=== PATIENT | male | born 1950 | race Caucasian/White ===

== ENCOUNTER 2023-08-07 05:28 | Emergency (ER) | payer MEDICARE, SELFPAY ==
[2023-08-07] VITALS (61 sets, daily range): BP systolic 123–184; BP diastolic 71–130; PULSE 82–104; RESP 12–18; TEMP 36.4–38.8; O2SAT 81–97
--- NOTE | 2023-08-07 05:53 | CRLHL7_ITS ---
For Patients: As a result of the Century Cures Act, medical imaging exams and procedure reports are released immediately into your electronic medical record. You may view this report before your referring provider. If you have questions, please contact your health care provider. INDICATION: Altered mental status, rule out stroke. Fall this morning. COMPARISON: None. TECHNIQUE: CT of the head without IV contrast. Coronal and sagittal reconstructions. FINDINGS: There is a small area of decreased attenuation in the anterior inferior right frontal lobe with some asymmetric fullness of the sulci in the right frontal lobe (series 5, image 31 and series 11, image 34). Differential considerations include a developing infarct versus parenchymal contusion given history of fall. No intracranial hemorrhage or abnormal extra-axial fluid collections. No midline shift. Mild generalized cerebral and cerebellar volume loss with associated ex vacuo dilation of the lateral ventricles. Orbits and extraocular muscles are symmetric. Extensive paranasal sinus mucosal thickening with near complete opacification of the right frontal, right maxillary, and left sphenoid sinuses. Bony hyperostosis of the michael of the right maxillary sinus and left sphenoid sinus compatible with chronic sinusitis. The mastoid air cells are clear. No acute fracture identified. Minimal soft tissue swelling or scarring in the right posterior parietal scalp. IMPRESSION: 1. Small area of decreased attenuation in the anterior inferior right frontal lobe with some asymmetric fullness of the right frontal sulci. Differential considerations include a developing infarct or parenchymal contusion given history of fall. Consider further evaluation with MRI. No evidence of intracranial hemorrhage. 2. Minimal soft tissue swelling or scarring in the right posterior parietal scalp. 3. Extensive paranasal sinus disease. 4. Findings discussed with Radha Cartagena at 7:02 a.m. on 08/07/2023. Please note that all CT scans at this facility use dose modulation, iterative reconstruction, and/or weight-based dosing when appropriate to reduce radiation dose to as low as reasonably achievable. Dictated by Lupis Tucker MD @ 08/07/2023 7:07:47 AM (Electronically Signed)
--- NOTE | 2023-08-07 05:53 | CRLHL7_ITS ---
For Patients: As a result of the Century Cures Act, medical imaging exams and procedure reports are released immediately into your electronic medical record. You may view this report before your referring provider. If you have questions, please contact your health care provider. INDICATION: Acute stroke, altered mental status, weakness. TECHNIQUE: CTA head with contrast bolus tracking, 3D angiographic rendering using maximum intensity projection (MIP) and images permanently archived. FINDINGS: The examination is limited due to suboptimal timing of the contrast bolus. There is no obvious large vessel occlusion. No large aneurysm is identified. IMPRESSION: No obvious large vessel occlusion on this limited examination. Please note that all CT scans at this facility use dose modulation, iterative reconstruction, and/or weight-based dosing when appropriate to reduce radiation dose to as low as reasonably achievable. Dictated by Maximiliano Michael MD @ 08/07/2023 9:48:16 AM (Electronically Signed)
--- NOTE | 2023-08-07 05:53 | CRLHL7_ITS ---
For Patients: As a result of the Century Cures Act, medical imaging exams and procedure reports are released immediately into your electronic medical record. You may view this report before your referring provider. If you have questions, please contact your health care provider. INDICATION: Acute stroke, altered mental status, weakness. TECHNIQUE: CTA neck with contrast bolus tracking, 3D angiographic rendering using maximum intensity projection (MIP) and images permanently archived. FINDINGS: There is no significant carotid artery stenosis or dissection. There is no significant vertebral artery stenosis or dissection. The soft tissues of the neck are within normal limits. The cervical spine is in normal alignment. Degenerative changes are noted in the cervical spine. 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 Cervical arterial vasculature is otherwise patent without evidence of dissection. Findings discussed with Radha Cartagena at 6:41 a.m. on 08/07/2023, by Dr. Tucker. Please note that all CT scans at this facility use dose modulation, iterative reconstruction, and/or weight-based dosing when appropriate to reduce radiation dose to as low as reasonably achievable. Dictated by Maximiliano Michael MD @ 08/07/2023 9:51:35 AM (Electronically Signed)
--- NOTE | 2023-08-07 06:19 | PC.NURSE ---
tele health neuro in room assessment with service writer
--- NOTE | 2023-08-07 06:21 | ED_ITS ---
HPI - General Adult General Chief complaint: Altered Mental Status <Toya King MD - Last Filed: 08/07/23 08:22> Stated complaint: altered mental status <Toya King MD - Last Filed: 08/07/23 08:22> Time Seen by Provider: 08/07/23 06:21 <Toya King MD - Last Filed: 08/07/23 08:22> Source: patient, family and EMS <Toya King MD - Last Filed: 08/07/23 08:22> Mode of arrival: EMS <Toya King MD - Last Filed: 08/07/23 08:22> History of Present Illness HPI narrative: 73-year-old male, family well known to me that presents to the emergency department because of weakness. Patient last known normal at 11:00 p.m. last night, went to get up out of bed this morning at 4:00 a.m. and fell out of bed. He has been having increased urination lately, as was suspicious of a urinary infection. After trying to help him, she noticed that he was weak and she was unable to help him get up. She called their son who lives nearby and arrived within just a couple of minutes. Noticed weakness but could not pinpoint. Called EMS for assistance. He arrives approximately an hour and half after symptom onset. He is not able to verbalize or localize any concerns. Quick exam revealing marked left lower extremity weakness, slow speech, other sequelae of stroke. Initiated patient over to CT well I quickly talk to their family that just arrived. They confirm the last known well times as well as the 4:00 a.m. findings. No recent fevers, trauma. Fell out of bed but only a couple of feet onto the floor. Does not use any anticoagulants. No history of seizures. No intoxication. Does have a history of diabetes and hypertension but no history of strokes or significant cardiovascular disease. Medications have not recently changed. Past medical history per family hypertension, diabetes, hyperlipidemia. Home meds notable for insulin, glimepiride, sounds like a statin and blood pressure medicine of some kind, we are still getting these results. ROS notable for recent increased urination but otherwise the marked neurological changes noted early this morning. <Toya King MD - Last Filed: 08/07/23 08:22> Related Data Home medications: Home Medications Medication Instructions Recorded Confirmed ascorbic acid (vitamin C) 500 mg 500 mg PO DAILY 08/07/23 08/07/23 capsule,extended release (Vitamin C) aspirin 81 mg capsule 81 mg PO DAILY 08/07/23 08/07/23 clotrimazole 1 % topical cream 1 applic topical BID 08/07/23 08/07/23 (Antifungal (clotrimazole)) glimepiride 4 mg tablet 4 mg PO DAILY 08/07/23 08/07/23 insulin glargine subcut 08/07/23 losartan 100 mg tablet (Cozaar) 100 mg PO DAILY 08/07/23 08/07/23 magnesium oxide 500 mg capsule 500 mg PO DAILY 08/07/23 08/07/23 multivitamin (Daily Multi-Vitamin 1 tab PO DAILY 08/07/23 08/07/23 tablet) oxybutynin chloride 10 mg 10 mg PO DAILY 08/07/23 08/07/23 tablet,extended release 24 hr pioglitazone 30 mg tablet (Actos) 30 mg PO DAILY 08/07/23 08/07/23 pravastatin 40 mg tablet 40 mg PO DAILY 08/07/23 08/07/23 sitagliptin phosphate 50 1 tab PO BID 08/07/23 08/07/23 mg-metformin 1,000 mg tablet (Janumet) <Toya King MD - Last Filed: 08/07/23 08:22> Allergies/adverse reactions: Allergies Allergy/AdvReac Type Severity Reaction Status Date / Time niacin Allergy Unknown Verified 08/07/23 06:32 cefdinir [From Omnicef] AdvReac Mild Rash Verified 08/07/23 06:32 hydrocodone AdvReac Mild Rash Verified 08/07/23 06:32 codeine AdvReac Unknown Verified 08/07/23 06:32 <Toya King MD - Last Filed: 08/07/23 08:22> [facility] Medical History: Medical History (Updated 08/07/23 @ 07:01 by Toya King MD) Obese ?E66.9 - Obesity, unspecified (ICD-10) High cholesterol ?E78.00 - Pure hypercholesterolemia, unspecified (ICD-10) HTN (hypertension) ?I10 - Essential (primary) hypertension (ICD-10) Erectile dysfunction ?N52.9 - Male erectile dysfunction, unspecified (ICD-10) Sleep apnea ?G47.30 - Sleep apnea, unspecified (ICD-10) OAB (overactive bladder) ?N32.81 - Overactive bladder (ICD-10) Type 2 diabetes mellitus ?E11.9 - Type 2 diabetes mellitus without complications (ICD-10) Prostate CA ?C61 - Malignant neoplasm of prostate (ICD-10) <Toya King MD - Last Filed: 08/07/23 08:22> Surgical History: Surgical History (Updated 08/07/23 @ 06:35 by Cassy Ocampo RN) H/O foot surgery ?Z98.890 - Other specified postprocedural states (ICD-10) History of appendectomy ?Z90.49 - Acquired absence of other specified parts of digestive tract (ICD- 10) H/O shoulder surgery ?Z98.890 - Other specified postprocedural states (ICD-10) <Toya King MD - Last Filed: 08/07/23 08:22> Social History: Social History Non-prescribed substance use: denies use <Toya King MD - Last Filed: 08/07/23 08:22> Exam Const: Vital Signs, click to edit/add: Vital Signs - 24 hr 08/07/23 21:00 Pulse Rate 89 Pulse Oximetry 92 <Toya King MD - Last Filed: 08/07/23 08:22> Vital Signs, click to edit/add: Vital Signs - 24 hr 08/07/23 21:00 Pulse Rate 89 Pulse Oximetry 92 <Sohpia Hassan MD - Last Filed: 08/08/23 20:53> Vital Signs, click to edit/add: Vital Signs - 24 hr 08/07/23 21:00 Pulse Rate 89 Pulse Oximetry 92 <Sophia Bar MD - Last Filed: 08/07/23 21:24> Documenting provider has reviewed patient's vital signs: yes <Toya King MD - Last Filed: 08/07/23 08:22> Exam limitations: altered mental status <MD Malini Carver Last Filed: 08/07/23 08:22> General appearance: well kempt <MD Malini Carver Last Filed: 08/07/23 08:22> Other: Cooperative and friendly. Speech in response time is markedly slower than his typical. <Toya King MD - Last Filed: 08/07/23 08:22> HENMT: Common normals: normocephalic and head/scalp atraumatic <MD Malini Carver Last Filed: 08/07/23 08:22> Head and scalp: normocephalic and atraumatic <MD Malini Carver Last Filed: 08/07/23 08:22> Other: Mild left facial droop. Oropharynx looks symmetrical with midline tongue protrusion. <Toya King MD - Last Filed: 08/07/23 08:22> Eye: Other: Patient has some neglect with visual field on the left side. Gaze preference to the right. Can distract him towards normal extraocular movements with my finger but he quickly reverts back to the right side. No obvious nystagmus. <MD Malini Carver Last Filed: 08/07/23 08:22> Neck & C-Spine: Common normals: full ROM and no lymphadenopathy <MD Malini Carver Last Filed: 08/07/23 08:22> Resp: Common normals: normal respiratory effort, no use of accessory muscles and clear to auscultation bilaterally <MD Malini Carver Last Filed: 08/07/23 08:22> Auscultation: clear to auscultation bilaterally <MD Malini Carver Last Filed: 08/07/23 08:22> Cardio: Common normals: regular rate, regular rhythm, S1 normal heart sound, S2 normal heart sound and no murmurs <MD Malini Carver Last Filed: 08/07/23 08:22> Rate: regular rate <MD Malini Carver Last Filed: 08/07/23 08:22> Rhythm: regular rhythm <MD Malini Carver Last Filed: 08/07/23 08:22> Heart sounds: S1 normal and S2 normal <MD Malini Carver Last Filed: 08/07/23 08:22> GI: Common normals: Normal to inspection, nondistended, normoactive bowel sounds present, soft to palpation, non-tender, no hepatosplenomegaly and no masses <Toya King MD - Last Filed: 08/07/23 08:22> Palpation: soft and no hepatosplenomegaly <MD Malini Carver Last Filed: 08/07/23 08:22> Extremity: Other: Marked weakness to left lower leg otherwise no obvious effusions or signs of trauma to the upper or lower extremities. <Toya King MD - Last Filed: 08/07/23 08:22> Neuro: Other: Marked weakness to left leg, cannot initiate movement. Mild drift to left upper extremity. Right upper and lower extremities normal to strength. Sensation difficult to interpret due to his slow mentation and response time. Flattening of left nasolabial fold. Neglect of left side and left visual colmenares. Decreased awareness, incorrect of date which is surprising, as his birthday was just yesterday. Recognizes his family in the room. Does not seem to recognize me. No agitation. <Toya King MD - Last Filed: 08/07/23 08:22> Psych: Appearance: well kempt <MD Malini Carver Last Filed: 08/07/23 08:22> Speech: slow <MD Malini Carver Last Filed: 08/07/23 08:22> Insight: limited <MD Malini Carver Last Filed: 08/07/23 08:22> Judgement: limited <MD Malini Carver Last Filed: 08/07/23 08:22> Skin: Common normals: no rashes or lesions noted <MD Malini Carver Last Filed: 08/07/23 08:22> General skin exam: no rashes or lesions noted <Toya King MD - Last Filed: 08/07/23 08:22> Course Course ED Course: Signs of significant stroke. NIH scale above 10. Patient taken urgently to CT scan, no evidence of obvious bleed seen per my interpretation. Immediate transition to CT angio of head and neck while we initiated call to tele stroke. Dr. Cartagena is examining patient and determining plan of care via telehealth. Basic labs will be ordered. <Toya King MD - Last Filed: 08/07/23 08:22> Reevaluation(s) Time of Reevaluation #1: 06:57 <Toya King MD - Last Filed: 08/07/23 08:22> Reevaluation #1: Telehealth assessment has been performed. I have also spoken with Dr. Cartagena, the neurologist on-call. We both agree that on the CT angiogram, we do not see any obvious large vessel blockage that would benefit from urgent inte rvention. She is recommending an MRI today, isaak, additional workup. Sometimes we can facilitate that MRI on the weekend if the staff that her on also happened to be ct scan technologist certified but this weekend, there is no MR service available. Because of this, Neurology is recommending transfer for further workup. We discussed antiplatelets and she recommends aspirin 325 p.o. x1. Will continue to monitor neurologically and reassess interventions if there is any neurological decline. We were able to get the patient on the wait list for [facility], he is 1st on the wait list for a neurology transfer. Delay in transfer due to bed availability. <Toya King MD - Last Filed: 08/07/23 08:22> Time of Reevaluation #2: 08:17 <Toya King MD - Last Filed: 08/07/23 08:22> Reevaluation #2: No interval changes, handing over plan of care to incoming day shift partner. <Toya King MD - Last Filed: 08/07/23 08:22> Time of Reevaluation #3: 14:01 <Sophia Hassan MD - Last Filed: 08/08/23 20:53> Reevaluation #3: At this time, patient is awake, is complaining of a mild headache. His notes that he has been having these recently. Will order him some Tylenol. We had done a bit more workup this morning given his elevated white count and elevated C-reactive protein. He had normal portable chest x-ray, urinalysis showed some concentration/dehydration but no evidence of UTI at this point. Lactate was normal. Two blood cultures were drawn. Did end up doing chest abdomen pelvis noncontrast as he already had IV contrast for the CT A's. This did not show any definite infectious etiology. We are still awaiting transfer to [place] at this time. <Sophia Hassan MD - Last Filed: 08/08/23 20:53> Additional Reevaluation(s): 18:23pm spoke with hospitalist at [facility] Dr. Moffett. She will accept the patient there. There is about a 4 hour bed delay for transfer. <Sophia Hassan MD - Last Filed: 08/08/23 20:53> Vital Signs Vital signs: Initial Vital Signs Temperature 99 F 08/07/23 05:38 Temperature Source Temporal Artery Scan 08/07/23 05:38 Pulse Rate 100 08/07/23 05:38 Respiratory Rate 18 08/07/23 05:38 Blood Pressure 167/79 H 08/07/23 05:38 Blood Pressure Mean 108 H 08/07/23 05:38 Blood Pressure Position Supine 08/07/23 05:38 Pulse Oximetry 90 08/07/23 05:38 Oxygen Delivery Method Room Air 08/07/23 05:38 Vital Signs Temperature 99 F 08/07/23 05:38 Pulse Rate 100 08/07/23 05:38 Respiratory Rate 18 08/07/23 05:38 Blood Pressure 167/79 H 08/07/23 05:38 Pulse Oximetry 90 08/07/23 05:38 Oxygen Delivery Method Room Air 08/07/23 05:38 Temperature 101.8 F H 08/07/23 20:32 Pulse Rate 89 08/07/23 21:00 Respiratory Rate 14 08/07/23 20:01 Blood Pressure 151/80 H 08/07/23 20:01 Pulse Oximetry 92 08/07/23 21:00 Oxygen Delivery Method Room Air 08/07/23 06:31 <Toya King MD - Last Filed: 08/07/23 08:22> Initial Vital Signs Temperature 99 F 08/07/23 05:38 Temperature Source Temporal Artery Scan 08/07/23 05:38 Pulse Rate 100 08/07/23 05:38 Respiratory Rate 18 08/07/23 05:38 Blood Pressure 167/79 H 08/07/23 05:38 Blood Pressure Mean 108 H 08/07/23 05:38 Blood Pressure Position Supine 08/07/23 05:38 Pulse Oximetry 90 08/07/23 05:38 Oxygen Delivery Method Room Air 08/07/23 05:38 Vital Signs Temperature 99 F 08/07/23 05:38 Pulse Rate 100 08/07/23 05:38 Respiratory Rate 18 08/07/23 05:38 Blood Pressure 167/79 H 08/07/23 05:38 Pulse Oximetry 90 08/07/23 05:38 Oxygen Delivery Method Room Air 08/07/23 05:38 Temperature 101.8 F H 08/07/23 20:32 Pulse Rate 89 08/07/23 21:00 Respiratory Rate 14 08/07/23 20:01 Blood Pressure 151/80 H 08/07/23 20:01 Pulse Oximetry 92 08/07/23 21:00 Oxygen Delivery Method Room Air 08/07/23 06:31 <Sophia Hassan MD - Last Filed: 08/08/23 20:53> Initial Vital Signs Temperature 99 F 08/07/23 05:38 Temperature Source Temporal Artery Scan 08/07/23 05:38 Pulse Rate 100 08/07/23 05:38 Respiratory Rate 18 08/07/23 05:38 Blood Pressure 167/79 H 08/07/23 05:38 Blood Pressure Mean 108 H 08/07/23 05:38 Blood Pressure Position Supine 08/07/23 05:38 Pulse Oximetry 90 08/07/23 05:38 Oxygen Delivery Method Room Air 08/07/23 05:38 Vital Signs Temperature 99 F 08/07/23 05:38 Pulse Rate 100 08/07/23 05:38 Respiratory Rate 18 08/07/23 05:38 Blood Pressure 167/79 H 08/07/23 05:38 Pulse Oximetry 90 08/07/23 05:38 Oxygen Delivery Method Room Air 08/07/23 05:38 Temperature 101.8 F H 08/07/23 20:32 Pulse Rate 89 08/07/23 21:00 Respiratory Rate 14 08/07/23 20:01 Blood Pressure 151/80 H 08/07/23 20:01 Pulse Oximetry 92 08/07/23 21:00 Oxygen Delivery Method Room Air 08/07/23 06:31 <Sophia Bar MD - Last Filed: 08/07/23 21:24> Medical Decision Making MDM Narrative Medical decision making narrative: Differential diagnosis including stroke, seizure, delirium, sepsis, intoxication, among others. Stroke standing most likely. <Toya King MD - Last Filed: 08/07/23 08:22> Differential diagnosis including stroke, seizure, delirium, sepsis, intoxication, among others. Stroke standing most likely. Did develop a fever of 101.8 just prior to his transfer. Tylenol was given and repeat blood cultures were drawn. I did update the accepting hospitalist with this information and recommended an LP and echocardiogram which were not able to do prior to him leaving secondary to ambulance arriving and no echocardiogram capabilities. Patient was transferred in stable condition. <Sophia Bar MD - Last Filed: 08/07/23 21:24> Medical Records Medical records reviewed: Yes I reviewed the patient's medical records <Toya King MD - Last Filed: 08/07/23 08:22> Lab Data Lab results reviewed: Yes I reviewed the patient's lab results <Toya King MD - Last Filed: 08/07/23 08:22> Lab results narrative: Mild leukocytosis, mild hyponatremia which is likely reactive from his hyperglycemia. Otherwise, labs look pretty good. <Toya King MD - Last Filed: 08/07/23 08:22> Labs: Lab Results 08/07/23 08/07/23 08/07/23 Range/Units 06:13 06:47 08:01 WBC 17.46 H (4.50-11.00) K/uL RBC 4.54 (4.30-5.90) m/uL Hgb 14.0 (13.5-17.5) gm/dL Hct 41.5 (37.0-53.0) % MCV 91 (80-100) fL MCH 31 (26-34) pg MCHC 34 (32-36) gm/dL RDW Coeff of Fer 14.3 (11.5-15.5) % Plt Count 209 (140-440) K/uL Neut % (Auto) 90.4 H (42.0-72.0) % Lymph % (Auto) 2.6 L (20-44) % Saline % (Auto) 6.6 (0.0-11.0) % Eos % (Auto) 0.0 (0.0-7.0) % Baso % (Auto) 0.1 (0.0-3.0) % Neut # (Auto) 15.80 H (1.7-7.0) K/uL Lymph # (Auto) 0.50 L (0.90-2.90) K/uL Saline # (Auto) 1.20 H (0.00-0.90) K/UL Eos # (Auto) 0.00 (0.00-0.50) K/uL Baso # (Auto) 0.00 (0.00-0.30) K/uL Abs Immat Gran (auto) 0.10 (0.00-0.30) K/uL Imm/Tot Granulo (auto) 0.3 % Sodium 131 L (135-149) mmol/L Potassium 4.5 (3.6-5.1) mmol/L Chloride 96 (96-114) mmol/L Carbon Dioxide 23 (20-32) mmol/L Anion Gap 12 (7-15) mEq/L BUN 21 (7-30) mg/dL Creatinine 0.9 (0.5-1.5) mg/dL Estimated GFR 90 ml/min Glucose 274 H (60-115) mg/dL Lactate (0.5-1.9) mmol/L Calcium 9.3 (8.4-10.6) mg/dL C-Reactive Protein 22.5 H (0.5-1.0) mg/dL Urine Color (Yellow) Urine Appearance (Clear) Urine pH (5.0-8.5) Ur Specific Garfield (1.000-1.030) Urine Protein (Negative) Urine Glucose (UA) (Negative) Urine Ketones (Negative) Urine Blood (Negative) Urine Nitrite (Negative) Urine Bilirubin (Negative) Urine Urobilinogen (0.2-1.0) Ur Leukocyte Esterase (Negative) Urine RBC (0-2) Urine WBC (0-5) Ur Squamous Epith Cells (None-Few) Urine Bacteria (None) SARS-CoV-2 (PCR) Negative SARS-CoV-2 (Negative) Influenza Type A (PCR) Negative PCR FLU A (Negative) Influenza Type B (PCR) Negative PCR FLU B (Negative) RSV (PCR) Negative PCR RSV (Negative) POC Troponin I 0.00 L (0.01-0.04) ng/ml 08/07/23 08/07/23 Range/Units 09:45 10:45 WBC (4.50-11.00) K/uL RBC (4.30-5.90) m/uL Hgb (13.5-17.5) gm/dL Hct (37.0-53.0) % MCV (80-100) fL MCH (26-34) pg MCHC (32-36) gm/dL RDW Coeff of Fer (11.5-15.5) % Plt Count (140-440) K/uL Neut % (Auto) (42.0-72.0) % Lymph % (Auto) (20-44) % Saline % (Auto) (0.0-11.0) % Eos % (Auto) (0.0-7.0) % Baso % (Auto) (0.0-3.0) % Neut # (Auto) (1.7-7.0) K/uL Lymph # (Auto) (0.90-2.90) K/uL Saline # (Auto) (0.00-0.90) K/UL Eos # (Auto) (0.00-0.50) K/uL Baso # (Auto) (0.00-0.30) K/uL Abs Immat Gran (auto) (0.00-0.30) K/uL Imm/Tot Granulo (auto) % Sodium (135-149) mmol/L Potassium (3.6-5.1) mmol/L Chloride (96-114) mmol/L Carbon Dioxide (20-32) mmol/L Anion Gap (7-15) mEq/L BUN (7-30) mg/dL Creatinine (0.5-1.5) mg/dL Estimated GFR ml/min Glucose (60-115) mg/dL Lactate 1.9 (0.5-1.9) mmol/L Calcium (8.4-10.6) mg/dL C-Reactive Protein (0.5-1.0) mg/dL Urine Color Yellow (Yellow) Urine Appearance Clear (Clear) Urine pH 5.5 (5.0-8.5) Ur Specific Garfield 1.020 (1.000-1.030) Urine Protein 2+ A (Negative) Urine Glucose (UA) 2+ A (Negative) Urine Ketones 3+ A (Negative) Urine Blood 2+ A (Negative) Urine Nitrite Negative (Negative) Urine Bilirubin Negative (Negative) Urine Urobilinogen 0.2 (0.2-1.0) Ur Leukocyte Esterase Negative (Negative) Urine RBC 2-5 A (0-2) Urine WBC 0-2 (0-5) Ur Squamous Epith Cells None (None-Few) Urine Bacteria Few A (None) SARS-CoV-2 (PCR) (Negative) Influenza Type A (PCR) (Negative) Influenza Type B (PCR) (Negative) RSV (PCR) (Negative) POC Troponin I (0.01-0.04) ng/ml <Toya King MD - Last Filed: 08/07/23 08:22> Lab Results 08/07/23 08/07/23 08/07/23 Range/Units 06:13 06:47 08:01 WBC 17.46 H (4.50-11.00) K/uL RBC 4.54 (4.30-5.90) m/uL Hgb 14.0 (13.5-17.5) gm/dL Hct 41.5 (37.0-53.0) % MCV 91 (80-100) fL MCH 31 (26-34) pg MCHC 34 (32-36) gm/dL RDW Coeff of Fer 14.3 (11.5-15.5) % Plt Count 209 (140-440) K/uL Neut % (Auto) 90.4 H (42.0-72.0) % Lymph % (Auto) 2.6 L (20-44) % Saline % (Auto) 6.6 (0.0-11.0) % Eos % (Auto) 0.0 (0.0-7.0) % Baso % (Auto) 0.1 (0.0-3.0) % Neut # (Auto) 15.80 H (1.7-7.0) K/uL Lymph # (Auto) 0.50 L (0.90-2.90) K/uL Saline # (Auto) 1.20 H (0.00-0.90) K/UL Eos # (Auto) 0.00 (0.00-0.50) K/uL Baso # (Auto) 0.00 (0.00-0.30) K/uL Abs Immat Gran (auto) 0.10 (0.00-0.30) K/uL Imm/Tot Granulo (auto) 0.3 % Sodium 131 L (135-149) mmol/L Potassium 4.5 (3.6-5.1) mmol/L Chloride 96 (96-114) mmol/L Carbon Dioxide 23 (20-32) mmol/L Anion Gap 12 (7-15) mEq/L BUN 21 (7-30) mg/dL Creatinine 0.9 (0.5-1.5) mg/dL Estimated GFR 90 ml/min Glucose 274 H (60-115) mg/dL Lactate (0.5-1.9) mmol/L Calcium 9.3 (8.4-10.6) mg/dL C-Reactive Protein 22.5 H (0.5-1.0) mg/dL Urine Color (Yellow) Urine Appearance (Clear) Urine pH (5.0-8.5) Ur Specific Garfield (1.000-1.030) Urine Protein (Negative) Urine Glucose (UA) (Negative) Urine Ketones (Negative) Urine Blood (Negative) Urine Nitrite (Negative) Urine Bilirubin (Negative) Urine Urobilinogen (0.2-1.0) Ur Leukocyte Esterase (Negative) Urine RBC (0-2) Urine WBC (0-5) Ur Squamous Epith Cells (None-Few) Urine Bacteria (None) SARS-CoV-2 (PCR) Negative SARS-CoV-2 (Negative) Influenza Type A (PCR) Negative PCR FLU A (Negative) Influenza Type B (PCR) Negative PCR FLU B (Negative) RSV (PCR) Negative PCR RSV (Negative) POC Troponin I 0.00 L (0.01-0.04) ng/ml 08/07/23 08/07/23 Range/Units 09:45 10:45 WBC (4.50-11.00) K/uL RBC (4.30-5.90) m/uL Hgb (13.5-17.5) gm/dL Hct (37.0-53.0) % MCV (80-100) fL MCH (26-34) pg MCHC (32-36) gm/dL RDW Coeff of Fer (11.5-15.5) % Plt Count (140-440) K/uL Neut % (Auto) (42.0-72.0) % Lymph % (Auto) (20-44) % Saline % (Auto) (0.0-11.0) % Eos % (Auto) (0.0-7.0) % Baso % (Auto) (0.0-3.0) % Neut # (Auto) (1.7-7.0) K/uL Lymph # (Auto) (0.90-2.90) K/uL Saline # (Auto) (0.00-0.90) K/UL Eos # (Auto) (0.00-0.50) K/uL Baso # (Auto) (0.00-0.30) K/uL Abs Immat Gran (auto) (0.00-0.30) K/uL Imm/Tot Granulo (auto) % Sodium (135-149) mmol/L Potassium (3.6-5.1) mmol/L Chloride (96-114) mmol/L Carbon Dioxide (20-32) mmol/L Anion Gap (7-15) mEq/L BUN (7-30) mg/dL Creatinine (0.5-1.5) mg/dL Estimated GFR ml/min Glucose (60-115) mg/dL Lactate 1.9 (0.5-1.9) mmol/L Calcium (8.4-10.6) mg/dL C-Reactive Protein (0.5-1.0) mg/dL Urine Color Yellow (Yellow) Urine Appearance Clear (Clear) Urine pH 5.5 (5.0-8.5) Ur Specific [place] 1.020 (1.000-1.030) Urine Protein 2+ A (Negative) Urine Glucose (UA) 2+ A (Negative) Urine Ketones 3+ A (Negative) Urine Blood 2+ A (Negative) Urine Nitrite Negative (Negative) Urine Bilirubin Negative (Negative) Urine Urobilinogen 0.2 (0.2-1.0) Ur Leukocyte Esterase Negative (Negative) Urine RBC 2-5 A (0-2) Urine WBC 0-2 (0-5) Ur Squamous Epith Cells None (None-Few) Urine Bacteria Few A (None) SARS-CoV-2 (PCR) (Negative) Influenza Type A (PCR) (Negative) Influenza Type B (PCR) (Negative) RSV (PCR) (Negative) POC Troponin I (0.01-0.04) ng/ml <Sophia Hassan MD - Last Filed: 08/08/23 20:53> Lab Results 08/07/23 08/07/23 08/07/23 Range/Units 06:13 06:47 08:01 WBC 17.46 H (4.50-11.00) K/uL RBC 4.54 (4.30-5.90) m/uL Hgb 14.0 (13.5-17.5) gm/dL Hct 41.5 (37.0-53.0) % MCV 91 (80-100) fL MCH 31 (26-34) pg MCHC 34 (32-36) gm/dL RDW Coeff of Fer 14.3 (11.5-15.5) % Plt Count 209 (140-440) K/uL Neut % (Auto) 90.4 H (42.0-72.0) % Lymph % (Auto) 2.6 L (20-44) % Saline % (Auto) 6.6 (0.0-11.0) % Eos % (Auto) 0.0 (0.0-7.0) % Baso % (Auto) 0.1 (0.0-3.0) % Neut # (Auto) 15.80 H (1.7-7.0) K/uL Lymph # (Auto) 0.50 L (0.90-2.90) K/uL Saline # (Auto) 1.20 H (0.00-0.90) K/UL Eos # (Auto) 0.00 (0.00-0.50) K/uL Baso # (Auto) 0.00 (0.00-0.30) K/uL Abs Immat Gran (auto) 0.10 (0.00-0.30) K/uL Imm/Tot Granulo (auto) 0.3 % Sodium 131 L (135-149) mmol/L Potassium 4.5 (3.6-5.1) mmol/L Chloride 96 (96-114) mmol/L Carbon Dioxide 23 (20-32) mmol/L Anion Gap 12 (7-15) mEq/L BUN 21 (7-30) mg/dL Creatinine 0.9 (0.5-1.5) mg/dL Estimated GFR 90 ml/min Glucose 274 H (60-115) mg/dL Lactate (0.5-1.9) mmol/L Calcium 9.3 (8.4-10.6) mg/dL C-Reactive Protein 22.5 H (0.5-1.0) mg/dL Urine Color (Yellow) Urine Appearance (Clear) Urine pH (5.0-8.5) Ur Specific [place]field (1.000-1.030) Urine Protein (Negative) Urine Glucose (UA) (Negative) Urine Ketones (Negative) Urine Blood (Negative) Urine Nitrite (Negative) Urine Bilirubin (Negative) Urine Urobilinogen (0.2-1.0) Ur Leukocyte Esterase (Negative) Urine RBC (0-2) Urine WBC (0-5) Ur Squamous Epith Cells (None-Few) Urine Bacteria (None) SARS-CoV-2 (PCR) Negative SARS-CoV-2 (Negative) Influenza Type A (PCR) Negative PCR FLU A (Negative) Influenza Type B (PCR) Negative PCR FLU B (Negative) RSV (PCR) Negative PCR RSV (Negative) POC Troponin I 0.00 L (0.01-0.04) ng/ml 08/07/23 08/07/23 Range/Units 09:45 10:45 WBC (4.50-11.00) K/uL RBC (4.30-5.90) m/uL Hgb (13.5-17.5) gm/dL Hct (37.0-53.0) % MCV (80-100) fL MCH (26-34) pg MCHC (32-36) gm/dL RDW Coeff of Fer (11.5-15.5) % Plt Count (140-440) K/uL Neut % (Auto) (42.0-72.0) % Lymph % (Auto) (20-44) % Saline % (Auto) (0.0-11.0) % Eos % (Auto) (0.0-7.0) % Baso % (Auto) (0.0-3.0) % Neut # (Auto) (1.7-7.0) K/uL Lymph # (Auto) (0.90-2.90) K/uL Saline # (Auto) (0.00-0.90) K/UL Eos # (Auto) (0.00-0.50) K/uL Baso # (Auto) (0.00-0.30) K/uL Abs Immat Gran (auto) (0.00-0.30) K/uL Imm/Tot Granulo (auto) % Sodium (135-149) mmol/L Potassium (3.6-5.1) mmol/L Chloride (96-114) mmol/L Carbon Dioxide (20-32) mmol/L Anion Gap (7-15) mEq/L BUN (7-30) mg/dL Creatinine (0.5-1.5) mg/dL Estimated GFR ml/min Glucose (60-115) mg/dL Lactate 1.9 (0.5-1.9) mmol/L Calcium (8.4-10.6) mg/dL C-Reactive Protein (0.5-1.0) mg/dL Urine Color Yellow (Yellow) Urine Appearance Clear (Clear) Urine pH 5.5 (5.0-8.5) Ur Specific [place] 1.020 (1.000-1.030) Urine Protein 2+ A (Negative) Urine Glucose (UA) 2+ A (Negative) Urine Ketones 3+ A (Negative) Urine Blood 2+ A (Negative) Urine Nitrite Negative (Negative) Urine Bilirubin Negative (Negative) Urine Urobilinogen 0.2 (0.2-1.0) Ur Leukocyte Esterase Negative (Negative) Urine RBC 2-5 A (0-2) Urine WBC 0-2 (0-5) Ur Squamous Epith Cells None (None-Few) Urine Bacteria Few A (None) SARS-CoV-2 (PCR) (Negative) Influenza Type A (PCR) (Negative) Influenza Type B (PCR) (Negative) RSV (PCR) (Negative) POC Troponin I (0.01-0.04) ng/ml <Sophia Bar MD - Last Filed: 08/07/23 21:24> Imaging Data CT scan - head: Attestation: I have reviewed the pertinent imaging results. <Toya King MD - Last Filed: 08/07/23 08:22> My impression: No obvious bleed. No mass. <Toya King MD - Last Filed: 08/07/23 08:22> CT angio head and neck: Attestation: I have reviewed the pertinent imaging results. <Toya King MD - Last Filed: 08/07/23 08:22> My impression: No obvious large vessel blockage, but interpretation of these is out of my skill set <Toya King MD - Last Filed: 08/07/23 08:22> Radiologist's impression: 1. Exam limited by suboptimal arterial phase of contrast. 2. The A1 segment of the right SABI is not identified and may be occluded or congenitally diminutive/absent. The right A2 segment is patent via the anterior communicating artery. No other intracranial proximal large vessel occlusion identified. 3. There is severe focal narrowing of the cervical left vertebral artery at the level of C3 by facet arthropathy. Cervical arterial vasculature is otherwise patent without evidence of dissection. 4. Findings discussed with aRdha Cartagena at 6:41 a.m. on 08/07/2023. <Toya King MD - Last Filed: 08/07/23 08:22> Chest x-ray: Attestation: I have reviewed the pertinent imaging results. <Sophia Schmidt MD - Last Filed: 08/08/23 20:53> Radiologist's impression: Patient: MIO ALMAZAN Facility:?[facility] Patient ID:?[id number] Site Patient ID:?[id number]. Site :?[id number] Study:?XRay Chest Portable-08/07/2023 8:16:17 AM Ordering Physician:Serafin Cortes Final Report: INDICATION: AMS INDICATION: Altered mental status. TECHNIQUE: Chest 1 view. COMPARISON: None FINDINGS: Cardiovascular and mediastinum: Heart size and vasculature are normal in caliber and appearance. Mediastinum is within normal limits. Lungs and pleural space: Lungs are clear. No sign of infiltrate or mass. No sign of pleural effusion. No pneumothorax. Bones and soft tissues: athletic monitor leads overlie the patient. IMPRESSION: There is no acute airspace disease. Dictated by Jamal Tan MD @ 08/07/2023 9:27:59 AM Dictated by: Jamal Tan MD @ 08/07/2023 09:28:14 (Electronic Signature) <Sophia Hassan MD - Last Filed: 08/08/23 20:53> CT Chest/Ab/Pelvis: Attestation: I have reviewed the pertinent imaging results. <Sophia Schmidt MD - Last Filed: 08/08/23 20:53> Radiologist's impression: Patient: MIO ALMAZAN Facility:?[facility] Patient ID:?[id number] Site Patient ID:?[id number]. Site :?[id number] Study:?CT Chest/Abd/Pelvis W/O-08/07/2023 10:31:37 AM Ordering Physician:Serafin Cortes Final Report: INDICATION: ams, elevated wbc/crp, no known infection source Indication: Altered mental status. Elevated white blood cell count/CRP. Technique: CT of the chest, abdomen, and pelvis. No intravenous contrast. Coronal/sagittal reconstruction images. Comparison: None. Findings: Chest: There is no pleural or pericardial effusion. No thoracic lymphadenopathy. The main pulmonary artery and thoracic aorta are normal in caliber. No mass at the thoracic inlet. The lung windows demonstrate bibasilar dependent atelectasis. There is no peripheral reticulation, honeycombing, or traction bronchiectasis. No mosaic attenuation. No endobronchial nodule or mass. There are a few tiny pulmonary nodules in the lungs. For example, on series 2, image 45, 5 millimeter pulmonary nodule in the right middle lobe. Abdomen/pelvis: There is diffuse hepatic steatosis. Non cirrhotic liver morphology. No perihepatic ascites. Spleen size is normal. No adrenal mass. Benign right renal cyst. There is no solid renal mass. There is perinephric fat stranding. There is no pancreatic mass or pancreatic duct dilation. No glandular atrophy. There is no gastric or duodenal wall thickening. Prostate appears absent. Perivesical fat/extraperitoneal space of Retzius are normal. Contrast within the intrarenal collecting systems and urinary bladder. No bladder mass. Colonic diverticulosis. No findings for diverticulitis. There is no mural thickening or perienteric edema. No transition point. Normal ileocecal valve. Small umbilical hernia containing fat. No enteric compromise. No inguinal or pelvic sidewall lymphadenopathy. Degenerative calcific plaque in a normal caliber abdominal aorta. No gastric or duodenal wall thickening. The bone windows demonstrate no suspicious bone lesions. Bridging osteophytes at the right SI joint. Degenerative disc disease throughout the thoracic spine. A lignment is preserved on sagittal reconstruction images. Impression: 1. No findings are seen to explain leukocytosis. 2. Umbilical hernia containing fat. No enteric compromise. 3. Diverticulosis of the colon. No associated inflammatory changes. 4. No thoracic, abdominal, or pelvic lymphadenopathy by size criteria. 5. Sub centimeter pulmonary nodules. These are of low suspicion. Follow-up is suggested per Fleischner society guidelines. FLEISCHNER SOCIETY GUIDELINES - SOLID NODULES: SINGLE LOW RISK - nodule less than 6 mm: No routine follow-up. - nodule 6-8 mm: CT at 6-12 months, then consider CT at 18-24 months. - nodule greater than 8 mm: Consider CT at 3 months, PET/CT or tissue sampling. SINGLE HIGH RISK - nodule less than 6 mm: Optional CT at 12 months. - nodule 6-8 mm: CT at 6-12 months, then CT at 18-24 months. - nodule greater than 8 mm: Consider CT at 3 months, PET/CT or tissue sampling. MULTIPLE LOW RISK - nodule less than 6 mm: No routine follow-up. - nodule 6-8 mm: CT at 3-6 months, then consider CT at 18-24 months. - nodule greater than 8 mm: CT at 3-6 months, then consider CT at 18-24 months. MULTIPLE HIGH RISK - nodule less than 6 mm: Optional CT at 12 months. - nodule 6-8 mm: CT at 3-6 months, then at 18-24 months. - nodule greater than 8 mm: CT at 3-6 months, then at 18-24 months. Dictated by Jamal Tan MD @ 08/07/2023 11:13:01 AM Please note that all CT scans at this facility use dose modulation, iterative reconstruction, and/or weight-based dosing when appropriate to reduce radiation dose to as low as reasonably achievable. Dictated by: Jamal Tan MD @ 08/07/2023 11:13:22 (Electronic Signature) <Sophia Hassan MD - Last Filed: 08/08/23 20:53> ECG Data Attestation: I personally reviewed and interpreted this ECG as follows: <Toya King MD - Last Filed: 08/07/23 08:22> Prior ECG tracings: not available for review <Toya King MD - Last Filed: 08/07/23 08:22> Interpretation: Normal sinus rhythm, rate 94. Normal axis. Normal R-wave progression. No significant ST or T-wave abnormalities. <Toya King MD - Last Filed: 08/07/23 08:22> Critical Care Time Critical Care Time Critical Care Time: Yes Attestation: The patient required my highest level preparedness to intervene emergently and I personally spent this critical care time directly and personally managing the patient. This critical care time included: Obtaining a history; Examining the patient; Pulse oximetry; Ordering and reviewing of studies; Arranging urgent treatment with development of a management plan; Evaluation of patients response to treatment; Frequent reassessment discussions with other providers. This critical care time was performed to assess and manage the high probability of imminent life-threatening deterioration that could result in multiorgan failure. It was exclusive of separate billable procedures and treating other patients and teaching time. <Toya King MD - Last Filed: 08/07/23 08:22> Total Critical Care Time in Minutes: 45 <Toya King MD - Last Filed: 08/07/23 08:22> Discharge Plan Discharge Clinical Impression: Stroke <Toya King MD - Last Filed: 08/07/23 08:22> Patient Disposition: [facility] <Toya King MD - Last Filed: 08/07/23 08:22> Discharge Location: [facility] <Toya King MD - Last Filed: 08/07/23 08:22> Condition: Guarded <Toya King MD - Last Filed: 08/07/23 08:22> Prescriptions: No Action multivitamin [Daily Multi-Vitamin] Tablet 1 tab PO DAILY losartan [Cozaar] 100 mg tablet 100 mg PO DAILY magnesium oxide 500 mg capsule 500 mg PO DAILY oxybutynin chloride 10 mg tablet extended release 24hr 10 mg PO DAILY pravastatin 40 mg tablet 40 mg PO DAILY Janumet 50-1,000 mg tablet 1 tab PO BID pioglitazone [Actos] 30 mg tablet 30 mg PO DAILY ascorbic acid (vitamin C) [Vitamin C] 500 mg capsule, extended release 500 mg PO DAILY aspirin 81 mg capsule 81 mg PO DAILY insulin glargine [Basaglar KwikPen U-100 Insulin] subcut clotrimazole [Antifungal (clotrimazole)] 1 % cream 1 applic topical BID glimepiride 4 mg tablet 4 mg PO DAILY <Toya King MD - Last Filed: 08/07/23 08:22> Stand Alone Forms: [facility] Info Instructions <Toya King MD - Last Filed: 08/07/23 08:22>
--- NOTE | 2023-08-07 07:03 | ED.NURSE ---
Stroke Code Times 0554 stroke code called - Ct notified [address] BGL in triage 264 Tele neuro paged @ 0602 Dr. Cartagena speaking w/ @ 0607 teleneuro exam @ 0615 On waitlist @ [facility] (needs MRI) @ 0648
[2023-08-07 07:04] LABS: Basophils Percent Auto 0.1 % (0.0-3.0); Hematocrit 41.5 % (37.0-53.0); Immature Granulocytes Pct Auto 0.3 %; Lymphocytes Percent Auto 2.6 % (20-44); Mean Corpuscular HGB Conc 34 gm/dL (32-36); Mean Corpuscular Hemoglobin 31 pg (26-34); Mean Corpuscular Volume 91 fL (80-100); Monocytes Percent Auto 6.6 % (0.0-11.0); Neutrophils Percent Auto 90.4 % (42.0-72.0); Platelet Count* 209 K/uL (140-440); RDW Coefficient of Variation % 14.3 % (11.5-15.5); Red Blood Count 4.54 m/uL (4.30-5.90); White Blood Count* 17.46 K/uL (4.50-11.00)
[2023-08-07] MEDS: ASPIRIN 81 MG TAB.CHEW 324 MG PO (07:09)
[2023-08-07 07:12] LABS: Slide Review Reflex No
[2023-08-07 07:14] LABS: Chloride* 96 mmol/L (96-114); Potassium* 4.5 mmol/L (3.6-5.1); Sodium* 131 mmol/L (135-149)
[2023-08-07 07:17] LABS: Anion Gap 12 mEq/L (7-15); Blood Urea Nitrogen* 21 mg/dL (7-30); Carbon Dioxide* 23 mmol/L (20-32); Creatinine* 0.9 mg/dL (0.5-1.5); Estimated Glomerular Filt Rate 90 ml/min
[2023-08-07 07:18] LABS: Calcium* 9.3 mg/dL (8.4-10.6); Glucose* 274 mg/dL (60-115)
[2023-08-07 07:32] LABS: C Reactive Protein* 22.5 mg/dL (0.5-1.0)
--- NOTE | 2023-08-07 08:02 | CRLHL7_ITS ---
For Patients: As a result of the Cures Act, medical imaging exams and procedure reports are released immediately into your electronic medical record. You may view this report before your referring provider. If you have questions, please contact your health care provider. INDICATION: AMS INDICATION: Altered mental status. TECHNIQUE: Chest 1 view. COMPARISON: None FINDINGS: Cardiovascular and mediastinum: Heart size and vasculature are normal in caliber and appearance. Mediastinum is within normal limits. Lungs and pleural space: Lungs are clear. No sign of infiltrate or mass. No sign of pleural effusion. No pneumothorax. Bones and soft tissues: monitoring tech leads overlie the patient. IMPRESSION: There is no acute airspace disease. Dictated by Jamal Tan MD @ 08/07/2023 9:27:59 AM Dictated by: Jamal Tan MD @ 08/07/2023 09:28:14 (Electronically Signed)
--- NOTE | 2023-08-07 08:36 | ED.NURSE ---
Pt asleep. Spouse at bedside. Provided w/ menu for when pt wakes up.
[2023-08-07 10:08] LABS: Appearance Urine Clear (Clear); Bilirubin Urine Negative (Negative); Blood Urine 2+ (Negative); Color Urine Yellow (Yellow); Glucose Urine 2+ (Negative); Ketones Urine 3+ (Negative); Leukocyte Esterase Urine Negative (Negative); Nitrite Urine Negative (Negative); Protein Urine 2+ (Negative); Urobilinogen Urine 0.2 (0.2-1.0); pH Urine 5.5 (5.0-8.5)
--- NOTE | 2023-08-07 10:13 | CRLHL7_ITS ---
For Patients: As a result of the Century Cures Act, medical imaging exams and procedure reports are released immediately into your electronic medical record. You may view this report before your referring provider. If you have questions, please contact your health care provider. INDICATION: ams, elevated wbc/crp, no known infection source Indication: Altered mental status. Elevated white blood cell count/CRP. Technique: CT of the chest, abdomen, and pelvis. No intravenous contrast. Coronal/sagittal reconstruction images. Comparison: None. Findings: Chest: There is no pleural or pericardial effusion. No thoracic lymphadenopathy. The main pulmonary artery and thoracic aorta are normal in caliber. No mass at the thoracic inlet. The lung windows demonstrate bibasilar dependent atelectasis. There is no peripheral reticulation, honeycombing, or traction bronchiectasis. No mosaic attenuation. No endobronchial nodule or mass. There are a few tiny pulmonary nodules in the lungs. For example, on series 2, image 45, 5 millimeter pulmonary nodule in the right middle lobe. Abdomen/pelvis: There is diffuse hepatic steatosis. Non cirrhotic liver morphology. No perihepatic ascites. Spleen size is normal. No adrenal mass. Benign right renal cyst. There is no solid renal mass. There is perinephric fat stranding. There is no pancreatic mass or pancreatic duct dilation. No glandular atrophy. There is no gastric or duodenal wall thickening. Prostate appears absent. Perivesical fat/extraperitoneal space of Retzius are normal. Contrast within the intrarenal collecting systems and urinary bladder. No bladder mass. Colonic diverticulosis. No findings for diverticulitis. There is no mural thickening or perienteric edema. No transition point. Normal ileocecal valve. Small umbilical hernia containing fat. No enteric compromise. No inguinal or pelvic sidewall lymphadenopathy. Degenerative calcific plaque in a normal caliber abdominal aorta. No gastric or duodenal wall thickening. The bone windows demonstrate no suspicious bone lesions. Bridging osteophytes at the right SI joint. Degenerative disc disease throughout the thoracic spine. Alignment is preserved on sagittal reconstruction images. Impression: 1. No findings are seen to explain leukocytosis. 2. Umbilical hernia containing fat. No enteric compromise. 3. Diverticulosis of the colon. No associated inflammatory changes. 4. No thoracic, abdominal, or pelvic lymphadenopathy by size criteria. 5. Sub centimeter pulmonary nodules. These are of low suspicion. Follow-up is suggested per Fleischner society guidelines. FLEISCHNER SOCIETY GUIDELINES - SOLID NODULES: SINGLE LOW RISK - nodule less than 6 mm: No routine follow-up. - nodule 6-8 mm: CT at 6-12 months, then consider CT at 18-24 months. - nodule greater than 8 mm: Consider CT at 3 months, PET/CT or tissue sampling. SINGLE HIGH RISK - nodule less than 6 mm: Optional CT at 12 months. - nodule 6-8 mm: CT at 6-12 months, then CT at 18-24 months. - nodule greater than 8 mm: Consider CT at 3 months, PET/CT or tissue sampling. MULTIPLE LOW RISK - nodule less than 6 mm: No routine follow-up. - nodule 6-8 mm: CT at 3-6 months, then consider CT at 18-24 months. - nodule greater than 8 mm: CT at 3-6 months, then consider CT at 18-24 months. MULTIPLE HIGH RISK - nodule less than 6 mm: Optional CT at 12 months. - nodule 6-8 mm: CT at 3-6 months, then at 18-24 months. - nodule greater than 8 mm: CT at 3-6 months, then at 18-24 months. Dictated by Jamal Tan MD @ 08/07/2023 11:13:01 AM Please note that all CT scans at this facility use dose modulation, iterative reconstruction, and/or weight-based dosing when appropriate to reduce radiation dose to as low as reasonably achievable. Dictated by: Jamal Tan MD @ 08/07/2023 11:13:22 (Electronically Signed)
[2023-08-07 10:25] LABS: Bacteria Urine Few; WBC Urine 0-2 (0-5)
[2023-08-07 10:39] LABS: PCR FLU A Negative PCR FLU A (Negative); PCR FLU B Negative PCR FLU B (Negative); PCR RSV Negative PCR RSV (Negative)
[2023-08-07 11:11] LABS: Lactate* 1.9 mmol/L (0.5-1.9)
[2023-08-07 11:12] LABS: SARS PCR* Negative SARS-CoV-2 (Negative)
[2023-08-07] MEDS: 0.9 % SODIUM CH + KCL 20 mEq/L 1,000 ML 100 ML IV ×2 (11:39→21:30)
--- NOTE | 2023-08-07 12:05 | ED.NURSE ---
Call to [facility] requesting status of admission, per the access center, pt is next in line for a neuro bed, pending a neuro discharge.
[2023-08-07] MEDS: ACETAMINOPHEN 500 MG TABLET 1000 MG PO ×2 (14:30→21:08)
--- NOTE | 2023-08-07 14:42 | ED.NURSE ---
Tylenol administered for headache. Observed difficulty w/ swallowing which is abnormal per pt's spouse. Pt is alert and continues to follow directions. Repositioned w/ pillows. Spouse and patient aware of plan to transfer and delay is due to bed availability. MD updated on swallowing difficulty.
--- NOTE | 2023-08-07 19:51 | ED.NURSE ---
Report given to [facility] ALEX Jackman. Dispatch notified.
--- NOTE | 2023-08-07 19:52 | ED.NURSE ---
Report received from ALEX Maier. Per previous RNMD aware of change in status: difficulty swallowing. NPO status in place.
--- NOTE | 2023-08-07 20:02 | ED.NURSE ---
back at bedside, updated with plan of care.
--- NOTE | 2023-08-07 21:21 | ED.NURSE ---
Report given to EMS.
--- NOTE | 2023-08-07 21:32 | ED.NURSE ---
[place] ALEX Jackman updated with elevated fever, Tylenol administration. Unable to obtain LP or blood cx prior to departure. Pt able to swallow water, PO meds without difficulty.
== END 2023-08-07 21:30 | disposition short-term general hospital (02) ==
PROVIDERS: Family Medicine; Emergency Provider Family Medicine; PCP Family Medicine
DX: I63.9 Cerebral infarction, unspecified (principal)
CPT/HCPCS: 36415; 70450; 70496; 70498; 71045; 71250; 74176; 80048; 81001; 82962; 83605; 84484; 85025; 86140; 87040; 87086; 87186; 87631; 93005; 94761; 99285; 99291; G0427; A9270; Q9967

== ENCOUNTER 2023-08-07 21:14 | Outpatient (CLI) | payer MEDICARE, SELFPAY | END 2023-08-07 21:15 | disposition home or self-care (01) | LOC: AMB 08-12 20:41 | PROVIDERS: PCP Family Medicine; Visit Provider Family Medicine | DX: I63.9 Cerebral infarction, unspecified (principal); R53.1 Weakness; R29.810 Facial weakness | CPT/HCPCS: A0425; A0427 ==